=== PATIENT | male | born 1955 | race Two or more races ===

== ENCOUNTER 2021-11-18 13:25 | Emergency (ER) | payer OTHER ==
[~2021-11-18] VITALS: Ht 170.2 cm; Wt 88.5 kg
[2021-11-18 14:05] VITALS: BP 151/106
[2021-11-18] MEDS ORDERED: CEPH-509 PO (14:43)
[2021-11-18] MEDS ORDERED: IBUP600T28 PO (14:43)
[2021-11-18] MEDS ORDERED: TETANUS-DIPTH-ACEL PERTUSSIS 0.5ML SYR Tdap IM ONE (14:45)
== END 2021-11-18 15:00 | disposition home or self-care (01) ==
LOC: ER 13:25
DX: S61.213A Laceration without foreign body of left middle finger without damage to nail, initial encounter (principal); S61.211A Laceration without foreign body of left index finger without damage to nail, initial encounter; J45.909 Unspecified asthma, uncomplicated; W26.8XXA Contact with other sharp object(s), not elsewhere classified, initial encounter; Y93.89 Activity, other specified; Y92.89 Other specified places as the place of occurrence of the external cause; Y99.8 Other external cause status
CPT/HCPCS: 12004; 73120; 90471; 90715

== ENCOUNTER 2021-11-20 11:07 | Emergency (ER) | payer OTHER ==
[~2021-11-20] VITALS: Ht 170.2 cm; Wt 89.8 kg
[~2021-11-20 11:07] MED LIST: CEPH-509 PO; IBUP600T28 PO
[2021-11-20 14:46] VITALS: BP 130/90
== END 2021-11-20 14:53 | disposition home or self-care (01) ==
LOC: ER 11:07
DX: S61.211D Laceration without foreign body of left index finger without damage to nail, subsequent encounter (principal); S61.213D Laceration without foreign body of left middle finger without damage to nail, subsequent encounter; J45.909 Unspecified asthma, uncomplicated; Z79.1 Long term (current) use of non-steroidal anti-inflammatories (NSAID); Z79.899 Other long term (current) drug therapy; W27.0XXD Contact with workbench tool, subsequent encounter